=== PATIENT | female | born 1950 | race Native Hawaiian/Other Pacific Islander ===

== ENCOUNTER 2016-08-27 11:01 | Outpatient (CLI) | payer OTHER ==
[2016-08-27 12:37] LABS: POTASSIUM 3.9 mmol/L (3.6-5.2); SODIUM 138 mmol/L (136-145)
[2016-08-27 12:54] LABS: PLATELET COUNT 205 K/uL (152-353)
== END 2016-08-27 19:10 | disposition home or self-care (01) ==
LOC: LABW 11:01
PROVIDERS: Nurse Practitioner
DX: R55 Syncope and collapse (principal); I10 Essential (primary) hypertension; E55.9 Vitamin D deficiency, unspecified; R53.83 Other fatigue; E78.00 Pure hypercholesterolemia, unspecified; R73.09 Other abnormal glucose
CPT/HCPCS: 36415; 80053; 80061; 82306; 83036; 83540; 84443; 85027